=== PATIENT | female | born 1995 | race Caucasian/White ===

== ENCOUNTER 2018-11-21 20:47 | Emergency (ER) | payer MEDICAID ==
[2018-11-21] MEDS: ACETAMINOPHEN 500 MG TAB PO (23:46)
[2018-11-22] LABS: ADD MAN DIFF? NO
[2018-11-22 00:01] LABS: WHITE BLOOD COUNT 4.7 10^3/ul (4.8-10.8)
[2018-11-22 00:01] LABS: BASOPHILS % 0.6 % (0.0-2.0); EOSINOPHILS # 0.1 10^3/ul (0.0-0.5); EOSINOPHILS % 1.7 % (0.0-7.0); HEMOGLOBIN 12.5 g/dl (12.0-16.0); LYMPHOCYTES # 1.4 10^3/ul (0.8-2.9); LYMPHOCYTES % 30.7 % (15.0-51.0); MEAN CORPUSCULAR HEMOGLOBIN 26.8 pg (29.0-33.0); MEAN CORPUSCULAR HGB CONC 31.3 g/dl (32.0-37.0); MEAN CORPUSCULAR VOLUME 85.7 fl (82.0-101.0); MEAN PLATELET VOLUME 9.3 fl (7.4-10.4); MONOCYTE # 0.6 10^3/ul (0.3-0.9); MONOCYTES % 11.9 % (0.0-11.0); NEUTROPHIL # 2.6 10^3/ul (1.6-7.5); NEUTROPHILS % 54.9 % (39.0-77.0); PLATELET COUNT 272 10^3/UL (140-415); RED BLOOD COUNT 4.67 10^6/ul (4.20-5.40); RED CELL DISTRIBUTION WIDTH 14.4 % (11.5-14.5)
[2018-11-22 00:29] LABS: INR 0.92; PROTIME 12.5 Sec (11.9-14.9)
[2018-11-22 00:30] LABS: PARTIAL THROMBOPLASTIN TIME 32.2 Sec (23.0-35.0)
== END 2018-11-22 01:11 | disposition home or self-care (01) ==
LOC: FTE 11-22 01:11
DX: R51 Headache (principal); R04.0 Epistaxis
CPT/HCPCS: 85025; 85610; 85730; 99283

== ENCOUNTER 2018-12-27 20:39 | Emergency (ER) | payer MEDICAID | END 2018-12-27 21:43 | disposition home or self-care (01) | LOC: FTE 20:39 | DX: J02.9 Acute pharyngitis, unspecified (principal) | CPT/HCPCS: 99282 ==